=== PATIENT | female | born 1985 | race Caucasian/White ===

== ENCOUNTER 2017-04-21 08:37 | Emergency (ER) | payer SELFPAY ==
[2017-04-21 08:55] VITALS: BP 114/79; BMI 19.3
[2017-04-21 09:03] LABS: BILIRUBIN,URINE NEGATIVE (NEGATIVE); BLOOD/HEMOGLOBIN,URINE 5+ (NEGATIVE); GLUCOSE, URINE NEGATIVE (NEGATIVE); KETONES,URINE 1+ (NEGATIVE); LEUKOCYTE ESTERASE ,URINE 1+ (NEGATIVE); NITRITES,URINE NEGATIVE (NEGATIVE); PROTEIN,URINE 3+ (NEGATIVE); UROBILINOGEN,URINE 1+ (NORMAL)
--- NOTE | 2017-04-21 09:05 | DR.GENAD ---
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 - Family History History of Family Medical Conditions: Yes Family Medical History: Diabetes Mellitus, Cancer, Hypertension - Social History Does patient currently use any type of tobacco product: No Have you used tobacco products in the last 12 months: No Type of Tobacco Use: None Does any household member use tobacco: No Alcohol Use: None Do you use any recreational Drugs:: No Lives With: Alone Lives Where: Home - infectious screening In the last 2 months have you had wt loss of >10#?: NO Have you had fever, night sweats or hemotysis?: No Have you traveled outside the country in the last 6 months?: No Isolation: Standard ROS - Review of Systems Constitutional: No Symptoms Reported Eyes: No Symptoms Reported ENTM: No Symptoms Reported Respiratoy: No Symptoms Reported Cardiovascular: No Symptoms Reported Gastrointestinal/Abdominal: No Symptoms Reported Genitourinary: Bleeding (EGA 11 weeks) Neurological: No Symptoms Reported Musculoskeletal: No Symptoms Reported Integumentary: No Symptoms Reported Hematologic/Lymphatic: No Symptoms Reported Endocrine: No Symptoms Reported Psychiatric: No Symptoms Reported All Other Systems: Reviewed and Negative PE - Vital Signs Vitals: Temperature 98.7 F Pulse Rate 109 Respiratory Rate 16 Blood Pressure 114/79 O2 Sat by Pulse Oximetry 100 - General Limitations: No Limitations General Appearance: Alert, In No Apparent Distress - Head Head Exam: Normal Inspection - Eyes Eye exam: Normal Appearance, EOMI. negative: Scleral Icterus, Conjunctival Injection - ENT External Ear Exam: Normal External Inspection - Neck Neck Exam: Normal Inspection, Full ROM, Trachea Midline - Respiratory Respiratory Exam: negative: Accessory Muscle Use, Respiratory Distress - Extremities Extremities Exam: Normal Inspection, Full ROM - Neurologic Neurological Exam: Alert, Oriented X3, CN II-XII Intact - Psychiatric Psychiatric Exam: Normal Mood - Skin Skin Exam: Intact, Normal Color ROR - Labs Reviewed Laboratory: HCG, Quant > 986459 mIU/mL (0-6) H 04/21/17 09:42 Specimen Type Clean catch urine 04/21/17 08:48 Urine Color Jane (YELLOW) 04/21/17 08:48 Urine Appearance Hazy (CLEAR) 04/21/17 08:48 Urine pH 6.0 (5.0 - 8.0) 04/21/17 08:48 Ur Specific [place] 1.025 (1.000-1.030) 04/21/17 08:48 Urine Protein 3+ (NEGATIVE) 04/21/17 08:48 Urine Glucose (UA) Negative (NEGATIVE) 04/21/17 08:48 Urine Ketones 1+ (NEGATIVE) 04/21/17 08:48 Urine Occult Blood 5+ (NEGATIVE) 04/21/17 08:48 Urine Nitrite Negative (NEGATIVE) 04/21/17 08:48 Urine Bilirubin Negative (NEGATIVE) 04/21/17 08:48 Urine Urobilinogen 1+ (NORMAL) 04/21/17 08:48 Ur Leukocyte Esterase 1+ (NEGATIVE) 04/21/17 08:48 Urine RBC Tntc /HPF (NEGATIVE) 04/21/17 08:48 Urine WBC 6-10 /HPF (NEGATIVE) 04/21/17 08:48 Ur Squamous Epith Cells Many /HPF (NEGATIVE) 04/21/17 08:48 Urine Bacteria 1+ /HPF (NEGATIVE) 04/21/17 08:48 Urine Mucus Moderate /HPF (NEGATIVE) 04/21/17 08:48 Ur Culture Indicated? Yes/culture set up 04/21/17 08:48 - XRAY XRAY Interpreted by: Radiologist XRAY Findings: OB US: EGA 8 weeks - Diagnosis Discharge Problem: Cut, accidental - Discharge Plan Condition: Stable Prescriptions: Amoxicillin [AMOXIL CAP 500 MG *] 500 mg PO BID #14 cap - Follow ups/Referrals Follow ups/Referrals: NORA HARTLEYIU [Primary Care Provider] - 3 days - Instructions
[2017-04-21 09:27] LABS: APPEARANCE,URINE HAZY (CLEAR); BACTERIA,URINE 1+ /HPF (NEGATIVE); COLOR,URINE AMBER (YELLOW); MUCUS,URINE MODERATE /HPF (NEGATIVE); RBC,URINE TNTC /HPF (NEGATIVE); SQUAMOUS EPITHELIAL CELL,UR MANY /HPF (NEGATIVE)
[2017-04-21] MEDS ORDERED: TYLENOL 325 MG TAB PO ONE ×2 (10:57→10:58)
--- NOTE | 2017-04-21 11:13 | US ---
History: Vaginal bleeding, quantitative beta HCG 200,000 Study: Transvaginal ultrasound Findings: Real-time transvaginal imaging of the pelvis demonstrates a well-formed intrauterine gesta tional sac containing a small pole and yolk sac. [place]-rump length of 21.7 millimeters given e stimated gestational age of 8 weeks 6 days. heart beat is 152 per minute. There is a cyst with in the right ovary which may represent a corpus luteal cyst. Left ovary appears unremarkable. Impression: Early intrauterine gestation of 8 weeks 3 days. Reported By:
[2017-04-21] MEDS ORDERED: AMOXIL CAP 500 MG PO ONE ×2 (11:27→11:28)
== END 2017-04-21 11:33 | disposition home or self-care (01) ==
LOC: ER 08:45
DX: T14.8 Other injury of unspecified body region (principal); Z3A.08 8 weeks gestation of pregnancy
CPT/HCPCS: 36415; 76801; 81001; 84702; 87086; 99282; 99283; 99284

== ENCOUNTER 2022-05-06 19:05 | Inpatient (IN) ==
[2022-05-06] MEDS ORDERED: D5 1/2 NS 1,000 ML 1,000 ML IV ONE ×2 (19:10→20:17)
[2022-05-06 19:45] VITALS: BMI 27.8
[2022-05-06 19:52] LABS: BASOPHILS # (AUTO) 0.1 X10^3/uL (0.0-0.1); BASOPHILS % (AUTO) 0.5 % (0.2-1.0); EOSINOPHILS # (AUTO) 0.1 x10^3/uL (0.0-0.2); EOSINOPHILS % (AUTO) 0.5 % (0.9-2.9); HEMATOCRIT 32.3 % (36.0-47.0); HEMOGLOBIN 11.1 g/dL (12.0-16.0); LYMPHOCYTES # (AUTO) 0.7 X10^3/uL (1.3-2.9); LYMPHOCYTES % (AUTO) 6.3 % (21.0-51.0); MEAN CORPUSCULAR HEMOGLOBIN 30.3 pg (27.0-34.0); MEAN CORPUSCULAR HGB CONC 34.3 g/dL (33.0-35.0); MEAN CORPUSCULAR VOLUME 88.3 fL (80.0-100.0); MEAN PLATELET VOLUME 9.3 fL (7.4-11.0); MONOCYTES # (AUTO) 0.8 x10^3/uL (0.3-0.8); NEUTROPHILS # (AUTO) 9.7 x10^3/uL (2.2-4.8); NEUTROPHILS % (AUTO) 85.7 % (42.0-75.0); RED BLOOD COUNT 3.66 X10^6/uL (3.5-5.4); RED CELL DISTRIBUTION WIDTH 16.2 % (11.6-16.5); WHITE BLOOD COUNT 11.3 X10^3/uL (3.6-10.0)
[2022-05-06 19:54] LABS: BILIRUBIN,URINE 1+ (NEGATIVE); BLOOD/HEMOGLOBIN,URINE 5+ (NEGATIVE); GLUCOSE, URINE NEGATIVE (NEGATIVE); KETONES,URINE 1+ (NEGATIVE); LEUKOCYTE ESTERASE ,URINE 3+ (NEGATIVE); NITRITES,URINE NEGATIVE (NEGATIVE); PROTEIN,URINE 3+ (NEGATIVE); UROBILINOGEN,URINE 1+ (NORMAL)
[2022-05-06 20:00] LABS: APPEARANCE,URINE CLOUDY (CLEAR); COLOR,URINE YELLOW (YELLOW)
[2022-05-06] MEDS ORDERED: D5 1/2 NS 1,000 ML 1,000 ML IV SCH (20:00)
[2022-05-06 20:01] LABS: BACTERIA,URINE 1+ /HPF (NEGATIVE); RBC,URINE TNTC /HPF (0-3); SQUAMOUS EPITHELIAL CELL,UR FEW /HPF (NEGATIVE)
[2022-05-06 20:02] LABS: ALANINE AMINOTRANSFERASE 10 Units/L (12-78); ALBUMIN 2.2 g/dL (3.4-5.0); ALKALINE PHOSPHATASE 188 Units/L (46-116); AMNISURE ROM TEST NO MEMBRANES RUPTURE (NO RUPTURE); ASPARTATE AMINO TRANSFERASE 21 Units/L (15-37); BLOOD UREA NITROGEN 10 mg/dL (7-18); CALCIUM 8.5 mg/dL (8.5-10.1); CARBON DIOXIDE 20.5 mmol/L (21-32); CHLORIDE 103 mmol/L (98-107); COR CA(FOR HYPOALB) 9.9 mg/dL (8.5-10.1); COR NA(FOR HYPERGLY) 139 mmol/L (136-145); CREATININE 1.21 mg/dL (0.55-1.02); SODIUM 135 mmol/L (136-145); TOTAL PROTEIN 6.3 g/dL (6.4-8.2); eGFR NON BLACK RACES 54 (>60)
[2022-05-06] MEDS ORDERED: AMPICILLIN VIAL 2 GRAM ONE (20:03)
[2022-05-06] MEDS ORDERED: NS 100 ML IV 100 ML ONE (20:03)
[2022-05-06] MEDS ORDERED: PITOCIN ONE (20:16)
[2022-05-06] MEDS ORDERED: BETADINE SOLN ONE (20:17)
[2022-05-06] MEDS ORDERED: D5 LR + PITOCIN 10 UNITS/L 10 UNITS/1,000 ML BAG IV ONE (20:18)
[2022-05-06] MEDS ORDERED: D5 1/2 NS 1,000 mL + PITOCIN 20 UNITS/L IV 20 UNITS/1,000 ML BAG IV ONE (20:18)
[2022-05-06] MEDS ORDERED: STADOL INJ IVP PRN (20:30)
[2022-05-06] MEDS ORDERED: NovoLIN R (or HumuLIN R) ONE (20:38)
[2022-05-06] MEDS ORDERED: PITOCIN IVP ONE (20:40)
[2022-05-06] MEDS ORDERED: PHENERGAN INJ 25 MG IM PRN ×2 (20:40→23:26)
[2022-05-06] MEDS ORDERED: D5 LR + PITOCIN 10 UNITS/L 10 UNITS/1,000 ML BAG IV PRN (20:40)
[2022-05-06] MEDS ORDERED: REGLAN INJ 10 MG VIAL IVP PRN (20:40)
--- NOTE | 2022-05-06 20:42 | DR.OB ---
OB Quick Note - Assessment/Plan Assessment/Plan: L&D 05/06/22 at 8:30pm S-No complaint except CTX. O-Afebrile,VSS UOS=933 with good LTV, +accel, no decel. CTX=q 3-5 min., mod. by palpation CVX=3cm/50%/-1/VTX SROM noted with thick meconium. IUPC and FSE placed. A-IUP at 37 5/7 weeks in active labor SROM IDDM +GBS P-Begin pitocin induction IV ABX in labor Amnio infusion Accu check every 4 hours with SS insulin coverage Anticipate
[2022-05-06] MEDS ORDERED: AMPICILLIN VIAL 2 GRAM 2 G in NS 100 ML IV + SPIKE MINIBAG* 100 ML IV SCH (21:00)
[2022-05-06] MEDS ORDERED: STADOL INJ ONE (21:19)
--- NOTE | 2022-05-06 23:25 | DR.OB ---
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 Head delivered over intact perineum. Nose and mouth bulb suctioned. No nuchal cord. Body delivered over intact perineum. Cord clamped x 2 and cut. Infant handed to attendant. Cord sent for gases. Placenta delivered spontaneously / intact / 3 vessel cord. No CVX tears noted. A small midline second degree tear noted and repaired with 0-vicryl in usual fashion. Viable male infant, VTX/OA, wt=8'0" and 1/7, stable to NBN. Mother stable to RR. PBA=[id number].
[2022-05-06] MEDS ORDERED: D5 1/2 NS 1,000 ML 1,000 ML with PITOCIN 20 UNITS IV SCH ×2 (23:45)
[2022-05-06] MEDS ORDERED: NovoLIN R (or HumuLIN R) SUBCUT ONE (23:56)
[2022-05-07] MEDS ORDERED: LR 1,000 ML IV 1,000 ML with PITOCIN 20 UNITS IV ONE ×2
[2022-05-07] MEDS: TYLENOL 325 MG TAB PO PRN ×2 (00:10→09:52)
[2022-05-07] MEDS ORDERED: AMBIEN PO PRN (00:46)
[2022-05-07] MEDS ORDERED: MILK OF MAGNESIA PO PRN (00:46)
[2022-05-07] MEDS ORDERED: DERMOPLAST PAIN RELIEF SPRAY TOP PRN (00:46)
[2022-05-07] MEDS ORDERED: ADACEL or BOOSTRIX TDaP VACCINE IM ONE (00:46)
[2022-05-07] MEDS ORDERED: TYLENOL 325 MG TAB PO PRN (00:58)
[2022-05-07] MEDS: MOTRIN TAB 800 MG PO PRN (02:03)
[2022-05-07 05:17] LABS: HEMATOCRIT 32.3 % (36.0-47.0); HEMOGLOBIN 11.2 g/dL (12.0-16.0)
[2022-05-07] MEDS: ANCEF VIAL 1 GRAM IVP SCH ×4 (05:31→21:35)
[2022-05-07] MEDS ORDERED: ANCEF VIAL 1 GRAM IVP SCH ×3 (06:00→07:00)
[2022-05-07] MEDS ORDERED: NovoLIN R (or HumuLIN R) SC PRN (07:53)
[2022-05-07] MEDS: HumaLOG SC SCH (09:00)
[2022-05-07] MEDS ORDERED: PATIENT'S HOME MEDICATION SUBCUT SCH (09:00)
[2022-05-07] MEDS ORDERED: HumaLOG SC SCH (09:00)
[2022-05-07] MEDS: PRENATAL PLUS PO SCH (09:52)
[2022-05-07] MEDS ORDERED: SNACK - Diabetic Appropriate PO SCH ×3 (20:00)
[2022-05-07] MEDS ORDERED: LANTUS SC SCH (21:00)
[2022-05-08] MEDS: MOTRIN TAB 800 MG PO PRN ×3 (00:12→11:13)
[2022-05-08] MEDS: ANCEF VIAL 1 GRAM IVP SCH (05:10)
[2022-05-08 08:17] VITALS: BP 146/84
[2022-05-08] MEDS: HumaLOG SC SCH (08:36)
[2022-05-08] MEDS: PRENATAL PLUS PO SCH (10:49)
== END 2022-05-08 11:15 | disposition home or self-care (01) | DRG 807 ==
LOC: ER 19:05 → LD 20:12 → MED/SURG 05-07 01:19
PROVIDERS: ADMIT Specialist; ATTEND Specialist
DX: Z37.0 Single live birth; Z3A.37 37 weeks gestation of pregnancy; O70.1 Second degree perineal laceration during delivery; O24.113 Pre-existing type 2 diabetes mellitus, in pregnancy, third trimester

== ENCOUNTER 2024-02-23 17:06 | Observation (INO) ==
[2024-02-23 19:42] LABS: BASOPHILS # (AUTO) 0.1 X10^3/uL (0.0-0.1); BASOPHILS % (AUTO) 0.8 % (0.2-1.0); EOSINOPHILS # (AUTO) 0.2 x10^3/uL (0.0-0.2); EOSINOPHILS % (AUTO) 2.5 % (0.9-2.9); HEMATOCRIT 37.9 % (36.0-47.0); HEMOGLOBIN 12.2 g/dL (12.0-16.0); LYMPHOCYTES # (AUTO) 1.6 X10^3/uL (1.3-2.9); MEAN CORPUSCULAR HEMOGLOBIN 28.1 pg (27.0-34.0); MEAN CORPUSCULAR HGB CONC 32.2 g/dL (33.0-35.0); MEAN CORPUSCULAR VOLUME 87.4 fL (80.0-100.0); MEAN PLATELET VOLUME 7.7 fL (7.4-11.0); MONOCYTES # (AUTO) 0.5 x10^3/uL (0.3-0.8); MONOCYTES % (AUTO) 6.2 % (0.0-13.0); NEUTROPHILS # (AUTO) 5.9 x10^3/uL (2.2-4.8); NEUTROPHILS % (AUTO) 71.5 % (42.0-75.0); PLATELET COUNT 362 X10^3/uL (150.0-450.0); RED BLOOD COUNT 4.33 X10^6/uL (3.5-5.4); WHITE BLOOD COUNT 8.3 X10^3/uL (3.6-10.0)
[2024-02-23 19:48] LABS: SERUM ACETONE NEGATIVE (NEGATIVE)
[2024-02-23 19:55] LABS: ALANINE AMINOTRANSFERASE 30 Units/L (12-78); ALBUMIN 3.8 g/dL (3.4-5.0); ALKALINE PHOSPHATASE 96 Units/L (46-116); ASPARTATE AMINO TRANSFERASE 21 Units/L (15-37); BLOOD UREA NITROGEN 16 mg/dL (7-18); CALCIUM 8.8 mg/dL (8.5-10.1); CARBON DIOXIDE 29.1 mmol/L (21-32); CHLORIDE 93 mmol/L (98-107); CREATININE 1.28 mg/dL (0.55-1.02); LIPASE 63 Units/L (16-77); MAGNESIUM 1.8 mg/dL (2.0-2.9); POTASSIUM 3.8 mmol/L (3.5-5.1); SODIUM 129 mmol/L (136-145); eGFR NON BLACK RACES 50 (>60)
[2024-02-23 20:04] LABS: COR NA(FOR HYPERGLY) 141 mmol/L (136-145); GLUCOSE 601 mg/dL (65-99)
[2024-02-23 20:14] VITALS: BMI 18.5
[2024-02-23 20:40] LABS: BILIRUBIN,URINE NEGATIVE (NEGATIVE); BLOOD/HEMOGLOBIN,URINE NEGATIVE (NEGATIVE); GLUCOSE, URINE 4+ (NEGATIVE); KETONES,URINE NEGATIVE (NEGATIVE); LEUKOCYTE ESTERASE ,URINE NEGATIVE (NEGATIVE); NITRITES,URINE NEGATIVE (NEGATIVE); PH,URINE 6.5 (5.0 - 8.0); PROTEIN,URINE NEGATIVE (NEGATIVE); UROBILINOGEN,URINE NORMAL (NORMAL)
[2024-02-23 20:44] LABS: APPEARANCE,URINE CLEAR (CLEAR); COLOR,URINE STRAW (YELLOW)
[2024-02-23] MEDS: NS 1,000 ML IV 1,000 ML IV PRN (20:49)
[2024-02-23] MEDS ORDERED: CONSULT PHARMACY - POTASSIUM & MAGNESIUM XX SCH (21:00)
[2024-02-23] MEDS: K-DUR TAB 20 MEQ PO ONE (22:30)
[2024-02-23] MEDS: MAG-OX TAB PO SCH (22:30)
[2024-02-23] MEDS: PEPCID 20 MG VIAL 20 MG in NS 50 ML IV 50 ML IV SCH (22:32)
[2024-02-23] MEDS: NS 1,000 ML IV 1,000 ML IV SCH (22:53)
[2024-02-23] MEDS: NovoLIN R (or HumuLIN R) SC PRN (23:57)
[2024-02-24] MEDS ORDERED: D50W ABBOJECT SYR ONE ×2 (05:47→05:51)
[2024-02-24] MEDS: D50W ABBOJECT SYR IV ONE (05:55)
[2024-02-24 06:01] LABS: BASOPHILS # (AUTO) 0.1 X10^3/uL (0.0-0.1); BASOPHILS % (AUTO) 1.2 % (0.2-1.0); EOSINOPHILS # (AUTO) 0.4 x10^3/uL (0.0-0.2); EOSINOPHILS % (AUTO) 3.7 % (0.9-2.9); HEMATOCRIT 33.8 % (36.0-47.0); HEMOGLOBIN 11.1 g/dL (12.0-16.0); LYMPHOCYTES # (AUTO) 2.2 X10^3/uL (1.3-2.9); LYMPHOCYTES % (AUTO) 19.9 % (21.0-51.0); MEAN CORPUSCULAR HEMOGLOBIN 28.4 pg (27.0-34.0); MEAN CORPUSCULAR VOLUME 86.1 fL (80.0-100.0); MEAN PLATELET VOLUME 7.4 fL (7.4-11.0); MONOCYTES # (AUTO) 0.7 x10^3/uL (0.3-0.8); MONOCYTES % (AUTO) 6.8 % (0.0-13.0); NEUTROPHILS # (AUTO) 7.5 x10^3/uL (2.2-4.8); NEUTROPHILS % (AUTO) 68.4 % (42.0-75.0); PLATELET COUNT 454 X10^3/uL (150.0-450.0); RED BLOOD COUNT 3.92 X10^6/uL (3.5-5.4); RED CELL DISTRIBUTION WIDTH 15.7 % (11.6-16.5); WHITE BLOOD COUNT 10.9 X10^3/uL (3.6-10.0)
[2024-02-24 06:15] LABS: PLATELET MORPHOLOGY COMMENT NORMAL (NORMAL)
[2024-02-24 06:22] LABS: ALANINE AMINOTRANSFERASE 27 Units/L (12-78); ALBUMIN 2.9 g/dL (3.4-5.0); ALKALINE PHOSPHATASE 72 Units/L (46-116); ASPARTATE AMINO TRANSFERASE 26 Units/L (15-37); BLOOD UREA NITROGEN 12 mg/dL (7-18); CALCIUM 8.2 mg/dL (8.5-10.1); CHLORIDE 108 mmol/L (98-107); COR CA(FOR HYPOALB) 9.1 mg/dL (8.5-10.1); CREATININE 0.73 mg/dL (0.55-1.02); POTASSIUM 3.2 mmol/L (3.5-5.1); SODIUM 143 mmol/L (136-145); TOTAL PROTEIN 6.2 g/dL (6.4-8.2); eGFR NON BLACK RACES > 60 (>60)
[2024-02-24 06:25] LABS: GLUCOSE 44 mg/dL (65-99)
[2024-02-24] MEDS ORDERED: HumuLIN 70/30 (NovoLIN 70/30) SC SCH ×2 (07:00→09:00)
[2024-02-24] MEDS ORDERED: CONSULT PHARMACY - POTASSIUM & MAGNESIUM XX SCH (08:00)
[2024-02-24] MEDS: K-DUR TAB 20 MEQ PO SCH ×2 (09:59→11:59)
[2024-02-24] MEDS: NEURONTIN CAP 100 MG PO SCH (10:34)
[2024-02-24] MEDS: LANTUS SC SCH (10:35)
--- NOTE | 2024-02-24 10:36 | DR.H&P ---
H&P History & Physical for Day of: H&P Date: 02/24/24 Chief Complaint Chief Complaint: generalized weakness, hyperglycemia Allergies Allergies Allergy/AdvReac Type Severity Reaction Status Date / Time No Known Drug Allergies Allergy Verified 04/21/17 10:28 History of Present Illness History of Present Illness: Ms Gates is a 38y/o female with a PMH of uncontrolled diabetes and medical non-compliance who presented to the office yesterday due to elevated glucose, weakness and poor oral intake. Her A1C was greater than 14. She has not been monitoring her glucose or taking her insulin. She was directly admitted for further evaluation and management. She still feels weak, appetite is slightly better. On admission, glucose was 601. Patient was given 2L NS bolus and started on maintenance fluids. her glucose came down to 564 and she was given insulin coverage as per SSI. Her glucose dropped early this morning to 38. She reports having tingling around her mouth. She ate some pudding and was given D50. Her most recent glucose is 275. She reports numbness and tingling in both legs and feet. Labs/imaging reviewed -WBC 10.9 K: 3.2 BUN/Cr: 12/0.73 Serum acetone negative -UA (-) Plan: continue hydration, replace K. Patient wants to be put back on Lantus and SSI as she was taking in the past. Will start Lantus 15 units daily and SSI. Monitor glucose levels today. Will start gabapentin 100 mg TID. Diabetic diet. Monitor AM labs/imaging. Past Medical History Past Medical History: Diabetes Past Surgical History Surgical History: Other Family History Family Medical History: Diabetes Mellitus and Cancer Social History Does patient currently use any type of tobacco product: Yes Type of Tobacco Use: Cigarettes How many years tobacco product used: 19 Does any household member use tobacco: No Alcohol Use: None Drug Use: None Medications Home Medications: Home Medications Medication Instructions Recorded Confirmed Type valacyclovir 1 gram tablet 1 tab PO BID 05/06/22 02/23/24 History Labs 02/24/24 05:39 02/24/24 05:39 Labs: Laboratory WBC 10.9 X10^3/uL (3.6-10.0) H 02/24/24 05:39 RBC 3.92 X10^6/uL (3.5-5.4) 02/24/24 05:39 Hgb 11.1 g/dL (12.0-16.0) L 02/24/24 05:39 Hct 33.8 % (36.0-47.0) L 02/24/24 05:39 MCV 86.1 fL (80.0-100.0) 02/24/24 05:39 MCH 28.4 pg (27.0-34.0) 02/24/24 05:39 MCHC 33.0 g/dL (33.0-35.0) 02/24/24 05:39 RDW 15.7 % (11.6-16.5) 02/24/24 05:39 Plt Count 454 X10^3/uL (150.0-450.0) H 02/24/24 05:39 Plt Count Comment Increased (ADEQUATE) A 02/24/24 05:39 MPV 7.4 fL (7.4-11.0) 02/24/24 05:39 Neut % (Auto) 68.4 % (42.0-75.0) 02/24/24 05:39 Lymph % (Auto) 19.9 % (21.0-51.0) L 02/24/24 05:39 [place] % (Auto) 6.8 % (0.0-13.0) 02/24/24 05:39 Eos % (Auto) 3.7 % (0.9-2.9) H 02/24/24 05:39 Baso % (Auto) 1.2 % (0.2-1.0) H 02/24/24 05:39 Neut # (Auto) 7.5 x10^3/uL (2.2-4.8) H 02/24/24 05:39 Lymph # (Auto) 2.2 X10^3/uL (1.3-2.9) 02/24/24 05:39 [place] # (Auto) 0.7 x10^3/uL (0.3-0.8) 02/24/24 05:39 Eos # (Auto) 0.4 x10^3/uL (0.0-0.2) H 02/24/24 05:39 Baso # (Auto) 0.1 X10^3/uL (0.0-0.1) 02/24/24 05:39 Absolute Nucleated RBC 0.0 /100WBC 02/24/24 05:39 Total Counted 100 02/24/24 05:39 Neutrophils % (Manual) 77 % (39-76) H 02/24/24 05:39 Lymphocytes % (Manual) 16 % (13-43) 02/24/24 05:39 Monocytes % (Manual) 3 % (4-9) L 02/24/24 05:39 Eosinophils % (Manual) 4 % (0-6) 02/24/24 05:39 Plt Morphology Comment Normal (NORMAL) 02/24/24 05:39 RBC Morphology Normal (NORMAL) 02/24/24 05:39 Sodium 143 mmol/L (136-145) 02/24/24 05:39 Corrected Sodium TNP 02/24/24 05:39 Potassium 3.2 mmol/L (3.5-5.1) L 02/24/24 05:39 Chloride 108 mmol/L (98-107) H 02/24/24 05:39 Carbon Dioxide 28.0 mmol/L (21-32) 02/24/24 05:39 BUN 12 mg/dL (7-18) 02/24/24 05:39 Creatinine 0.73 mg/dL (0.55-1.02) 02/24/24 05:39 Est GFR (MDRD) Af Amer > 60 (>60) 02/24/24 05:39 Est GFR (MDRD) Non-Af > 60 (>60) 02/24/24 05:39 Glucose 44 mg/dL (65-99) L* 02/24/24 05:39 POC Glucose (mg/dL) 275 mg/dL (65-99) H 02/24/24 06:44 Calcium 8.2 mg/dL (8.5-10.1) L 02/24/24 05:39 Corrected Calcium 9.1 mg/dL (8.5-10.1) 02/24/24 05:39 Magnesium 2.0 mg/dL (2.0-2.9) 02/24/24 05:39 Total Bilirubin 0.40 mg/dL (0.2-1.0) 02/24/24 05:39 AST 26 Units/L (15-37) 02/24/24 05:39 ALT 27 Units/L (12-78) 02/24/24 05:39 Alkaline Phosphatase 72 Units/L (46-116) 02/24/24 05:39 Total Protein 6.2 g/dL (6.4-8.2) L 02/24/24 05:39 Albumin 2.9 g/dL (3.4-5.0) L 02/24/24 05:39 Globulin 3.3 g/dL (2.5-4.5) 02/24/24 05:39 Albumin/Globulin Ratio 0.9 Ratio (1.1-2.1) L 02/24/24 05:39 Lipase 63 Units/L (16-77) 02/23/24 19:20 Specimen Type Clean catch urine 02/23/24 20:24 Urine Color Straw (YELLOW) 02/23/24 20:24 Urine Appearance Clear (CLEAR) 02/23/24 20:24 Urine pH 6.5 (5.0 - 8.0) 02/23/24 20:24 Ur Specific [place] 1.015 (1.000-1.030) 02/23/24 20:24 Urine Protein Negative (NEGATIVE) 02/23/24 20:24 Urine Glucose (UA) 4+ (NEGATIVE) 02/23/24 20:24 Urine Ketones Negative (NEGATIVE) 02/23/24 20:24 Urine Blood Negative (NEGATIVE) 02/23/24 20:24 Urine Nitrite Negative (NEGATIVE) 02/23/24 20:24 Urine Bilirubin Negative (NEGATIVE) 02/23/24 20:24 Urine Urobilinogen Normal (NORMAL) 02/23/24 20:24 Ur Leukocyte Esterase Negative (NEGATIVE) 02/23/24 20:24 Acetone, Semi-Quant Negative (NEGATIVE) 02/23/24 19:20 Review of Systems Constitutional: Weakness and Malaise Eyes: No Symptoms Reported ENT: No Symptoms Reported Respiratory: No Symptoms Reported Cardiovascular: No Symptoms Reported Gastrointestinal: Nausea Genitourinary: No Symptoms Reported Musculoskeletal: Leg Pain and Foot Pain Skin: No Symptoms Reported Neurological: Numbness Physical Exam Vital Signs: Vital Signs Temperature 98.1 F Temperature 98.0 F Pulse Rate [Apical] 89 Pulse Rate [Apical] 84 Respiratory Rate 17 Respiratory Rate 20 Blood Pressure [Right Arm] 98/59 Blood Pressure [Right Arm] 100/60 O2 Sat by Pulse Oximetry 97 O2 Sat by Pulse Oximetry 99 Oriented: Normal Eyes: Normal Ear: Normal Nose: Normal Throat: Dry Respiratory: Clear Throughout Cardiovascular: Normal Auscultation: Bowel Sounds: Normal Palpation: Normal Tenderness: Normal Skin: Decreased [place] Musculoskeletal: Normal Psychiatric: Normal Mood Description: Calm Affect: Normal Speech Pattern: Clear and Appropriate Assessment/Plan (1) Generalized weakness: Status: Acute (2) Dehydration: Status: Acute (3) Hyperglycemia: Status: Acute (4) Type 1 diabetes: Qualifiers: Diabetes mellitus complication status: with hyperglycemia Qualified Code(s): E10.65 - Type 1 diabetes mellitus with hyperglycemia Status: Acute (5) Hypokalemia: Status: Acute (6) Neuropathy: Status: Acute Review H&P Reviewed: Yes Patient was examined?: Yes
[2024-02-24] MEDS: SNACK - Diabetic Appropriate PO SCH (20:45)
[2024-02-25 04:51] VITALS: O2SAT 100
[2024-02-25 06:41] LABS: BASOPHILS % (AUTO) 0.6 % (0.2-1.0); EOSINOPHILS # (AUTO) 0.4 x10^3/uL (0.0-0.2); EOSINOPHILS % (AUTO) 6.8 % (0.9-2.9); HEMATOCRIT 30.1 % (36.0-47.0); HEMOGLOBIN 9.9 g/dL (12.0-16.0); LYMPHOCYTES # (AUTO) 1.5 X10^3/uL (1.3-2.9); LYMPHOCYTES % (AUTO) 25.1 % (21.0-51.0); MEAN CORPUSCULAR HEMOGLOBIN 28.6 pg (27.0-34.0); MEAN CORPUSCULAR VOLUME 86.7 fL (80.0-100.0); MEAN PLATELET VOLUME 7.7 fL (7.4-11.0); MONOCYTES # (AUTO) 0.4 x10^3/uL (0.3-0.8); MONOCYTES % (AUTO) 6.4 % (0.0-13.0); NEUTROPHILS # (AUTO) 3.7 x10^3/uL (2.2-4.8); NEUTROPHILS % (AUTO) 61.1 % (42.0-75.0); PLATELET COUNT 277 X10^3/uL (150.0-450.0); RED BLOOD COUNT 3.47 X10^6/uL (3.5-5.4); RED CELL DISTRIBUTION WIDTH 15.9 % (11.6-16.5)
[2024-02-25 06:53] LABS: BLOOD UREA NITROGEN 7 mg/dL (7-18); CALCIUM 7.7 mg/dL (8.5-10.1); CARBON DIOXIDE 23.6 mmol/L (21-32); CHLORIDE 109 mmol/L (98-107); COR NA(FOR HYPERGLY) 140 mmol/L (136-145); CREATININE 0.64 mg/dL (0.55-1.02); GLUCOSE 145 mg/dL (65-99); POTASSIUM 3.8 mmol/L (3.5-5.1); SODIUM 139 mmol/L (136-145); eGFR NON BLACK RACES > 60 (>60)
[2024-02-25] MEDS ORDERED: CONSULT PHARMACY - POTASSIUM & MAGNESIUM XX SCH (07:00)
[2024-02-25] MEDS: LANTUS SC SCH (09:57)
[2024-02-25 14:27] VITALS: BP 116/74; PULSE 97; RESP 18; TEMP 97.7
== END 2024-02-25 13:15 | disposition home or self-care (01) ==
LOC: MED/SURG
PROVIDERS: ADMIT Internal Medicine; ATTEND Internal Medicine
DX: Z72.0 Tobacco use; E83.42 Hypomagnesemia; E10.65 Type 1 diabetes mellitus with hyperglycemia; Z91.148 Patient's other noncompliance with medication regimen for other reason; E87.1 Hypo-osmolality and hyponatremia; E86.0 Dehydration; Z79.4 Long term (current) use of insulin; R53.1 Weakness; E87.6 Hypokalemia; G62.9 Polyneuropathy, unspecified